=== PATIENT | female | born 1960 ===

== ENCOUNTER → 2018-08-26 | Outpatient (CLI) | payer BC | END | disposition home or self-care (01) | LOC: TOM 10:57 | DX: M25.511 Pain in right shoulder (principal) ==

== ENCOUNTER 2020-11-03 15:19 | Outpatient (CLI) | payer BC | END 2020-11-03 15:40 | disposition home or self-care (01) | LOC: RAD 15:19 | PROVIDERS: ATTEND General Practice | DX: M51.37 Other intervertebral disc degeneration, lumbosacral region (principal); M54.31 Sciatica, right side ==